=== PATIENT | female | born 1985 | race African-American/Black ===

== ENCOUNTER 2016-07-29 17:07 | Emergency (ER) | payer OTHER ==
[~2016-07-29 17:07] MED LIST: KETO200T PO
[2016-07-29 17:19] VITALS: BP 126/74
[2016-07-29] MEDS ORDERED: KETO200T PO (17:54)
--- NOTE | 2016-07-29 17:55 | PHYS DOC ---
Past Medical History Past Medical History: No Pertinent History Past Surgical History: No Surgical History Additional Information: Nonsmoker Alcohol Use: Occasionally Drug Use: None Adult General Chief Complaint Chief Complaint: SKIN PROBLEM HPI HPI Patient is a 31 year old female who presents with rash on bilateral lower legs for 2 weeks. She reports that the spots are itchy. They have been increasing in size. She had similar rash a few months ago and was told that it was "a cousin of a yeast infection" and treated with a pill. The rash resolved with the treatment. She denies any change in household products or other family members with similar rash. She does not have a PCP. Review of Systems Review of Systems Constitutional: Denies fever or chills. [] Musculoskeletal: Denies back pain or joint pain. [] Integument: Reports rash on lower legs. Neurologic: focal weakness or sensory changes. [] Allergies Allergies Allergies Coded Allergies Type Severity Reaction Last Updated Verified No Known Drug Allergies 03/16/16 No Physical Exam Physical Exam Constitutional: Well developed, well nourished, no acute distress, non-toxic appearance. [] HENT: Normocephalic, atraumatic, oropharynx moist. [] Eyes: PERRLA, EOMI, conjunctiva normal, no discharge. [] Skin: Warm, dry, no erythema. There are 3 lesions on the lower legs that are hyperpigmented, macular, with dry skin. There is no central clearing. They do not yoli. There is no erythema or induration Extremities: No tenderness, ROM intact, no edema. Distal pulses equal bilaterally. [] Neurologic: Alert and oriented X 3, normal motor function, normal sensory function, no focal deficits noted. [] Psychologic: Affect normal, judgement normal, mood normal. [] Current Patient Data Vital Signs Vital Signs Date Time Temp Pulse Resp B/P Pulse Ox O2 Delivery O2 Flow Rate FiO2 07/29/16 17:19 98.8 84 18 96 Room Air 98.8 EKG EKG [] Radiology/Procedures Radiology/Procedures [] Course & Med Decision Making Course & Med Decision Making Pertinent Labs and Imaging studies reviewed. (See chart for details) [] Dragon Disclaimer Dragon Disclaimer This electronic medical record was generated, in whole or in part, using a voice recognition dictation system. Departure Departure Impression: Primary Impression: Tinea corporis Disposition: HOME, SELF-CARE Condition: STABLE Referrals: NEFTALY BARRIENTOS MD Patient Instructions: Body Ringworm Additional Instructions: Your rash appears to be due to a fungal infection. Please complete the prescribed medication as directed. Please follow-up with the documentation specialist listed below if the rash does not improve with treatment or if the rash comes back. Return to the emergency department if you have any new or concerning symptoms. Scripts Ketoconazole 200 Mg Tablet2 Tab PO WEEKLY #4 TAB Prov:EDGAR SHAIKH 07/29/16 EDGAR SHAIKH Jul 29, 2016 17:54
== END 2016-07-29 18:24 | disposition home or self-care (01) ==
LOC: ER 17:07
DX: B35.4 Tinea corporis (principal); R53.1 Weakness
CPT/HCPCS: 99283

== ENCOUNTER 2019-07-21 13:46 | Emergency (ER) | payer MEDICAID, OTHER ==
[~2019-07-21 13:46] MED LIST changes: -KETO200T PO; +KETO200T11 PO
[2019-07-21 14:24] LABS: BILIRUBIN,URINE NEGATIVE (NEG); CLARITY,URINE CLEAR; COLOR,URINE YELLOW; NITRITE,URINE NEGATIVE (NEG); PROTEIN,URINE NEGATIVE (NEG-TRACE)
[2019-07-21 14:27] LABS: U PREG PATIENT POSITIVE (NEG)
[2019-07-21 14:28] LABS: SQUAMOUS EPITHELIAL CELL,UR MOD /LPF
[2019-07-21 14:29] LABS: BACTERIA,URINE FEW /HPF (0-FEW); RBC,URINE 0 /HPF (0-2); WBC,URINE OCC /HPF (0-4)
--- NOTE | 2019-07-21 14:30 | PHYS DOC ---
Past Medical History Past Medical History: No Pertinent History (PANCHO ODONNELL APRN) Past Surgical History: No Surgical History (PANCHO ODONNELL APRN) Alcohol Use: Occasionally Drug Use: None (PANCHO ODONNELL APRN) Adult General Chief Complaint Chief Complaint: ABDOMINAL PAIN HPI HPI Patient is a 34 year old female who presents with nausea, vomiting and abdominal pain since last night. Her last period was June 07, 2019. [id number] Complete ROS were reviewed and found to be within normal limits, except as documented in the HPI (PANCHO ODONNELL APRN) Current Medications Current Medications Current Medications Medications (Trade) Dose Ordered Sig/Clemencia Start Time Stop Time Status Last Admin Dose Admin Ondansetron HCl (Zofran) 4 mg 1X ONCE 07/21/19 14:45 07/21/19 14:51 DC 07/21/19 15:29 4 MG Sodium Chloride 1,000 ml @ 1,000 mls/hr 1X ONCE 07/21/19 14:45 07/21/19 15:44 DC 07/21/19 15:30 1,000 MLS/HR (FUNMI RIZVI MD) Allergies Allergies Allergies Coded Allergies Type Severity Reaction Last Updated Verified No Known Drug Allergies 03/16/16 No (FUNMI RIZVI MD) Physical Exam Physical Exam Constitutional: Well developed, well nourished, no acute distress, non-toxic appearance. [] HENT: Normocephalic, atraumatic, bilateral external ears normal, oropharynx moist, no oral exudates, nose normal. [] Eyes: PERRLA, EOMI, conjunctiva normal, no discharge. [] Neck: Normal range of motion, no tenderness, supple, no stridor. [] Cardiovascular:Heart rate regular rhythm, no murmur [] Lungs & Thorax: Bilateral breath sounds clear to auscultation [] Abdomen: Bowel sounds normal, soft, periumbilical tenderness, no masses, no pulsatile masses. [] Skin: Warm, dry, no erythema, no rash. [] Neurologic: Alert and oriented X 3, normal motor function, normal sensory function, no focal deficits noted. [] Psychologic: Affect normal, judgement normal, mood normal. [] (PANCHO ODONNELL APRN) Current Patient Data Vital Signs Vital Signs Date Time Temp Pulse Resp B/P (MAP) Pulse Ox O2 Delivery O2 Flow Rate FiO2 07/21/19 17:50 90 16 111/62 (78) 99 Room Air 07/21/19 14:22 98.0 98.0 (FUNMI RIZVI MD) Lab Values Laboratory Tests Test 07/21/19 14:00 07/21/19 14:57 Urine Collection Type Unknown Urine Color Yellow Urine Clarity Clear Urine pH 7.0 Urine Specific [place] >=1.030 Urine Protein Negative mg/dL (NEG-TRACE) Urine Glucose (UA) Negative mg/dL (NEG) Urine Ketones (Stick) Negative mg/dL (NEG) Urine Blood Negative (NEG) Urine Nitrite Negative (NEG) Urine Bilirubin Negative (NEG) Urine Urobilinogen Dipstick 1.0 mg/dL (0.2 mg/dL) Urine Leukocyte Esterase Negative (NEG) Urine RBC 0 /HPF (0-2) Urine WBC Occ /HPF (0-4) Urine Squamous Epithelial Cells Mod /LPF Urine Bacteria Few /HPF (0-FEW) Urine Mucus Marked /LPF Urine Test Positive (NEG) White Blood Count 6.2 x10^3/uL (4.0-11.0) Red Blood Count 4.21 x10^6/uL (3.50-5.40) Hemoglobin 12.5 g/dL (12.0-15.5) Hematocrit 37.3 % (36.0-47.0) Mean Corpuscular Volume 89 fL (79-100) Mean Corpuscular Hemoglobin 30 pg (25-35) Mean Corpuscular Hemoglobin Concent 34 g/dL (31-37) Red Cell Distribution Width 13.8 % (11.5-14.5) Platelet Count 268 x10^3/uL (140-400) Neutrophils (%) (Auto) 70 % (31-73) Lymphocytes (%) (Auto) 23 % (24-48) L Monocytes (%) (Auto) 6 % (0-9) Eosinophils (%) (Auto) 1 % (0-3) Basophils (%) (Auto) 1 % (0-3) Neutrophils # (Auto) 4.3 x10^3/uL (1.8-7.7) Lymphocytes # (Auto) 1.4 x10^3/uL (1.0-4.8) Monocytes # (Auto) 0.3 x10^3/uL (0.0-1.1) Eosinophils # (Auto) 0.0 x10^3/uL (0.0-0.7) Basophils # (Auto) 0.0 x10^3/uL (0.0-0.2) Maternal Serum HCG Beta Subunit 00548 mIU/mL (0-5) H Sodium Level 136 mmol/L (136-145) Potassium Level 3.5 mmol/L (3.5-5.1) Chloride Level 100 mmol/L (98-107) Carbon Dioxide Level 27 mmol/L (21-32) Anion Gap 9 (6-14) Blood Urea Nitrogen 8 mg/dL (7-20) Creatinine 0.8 mg/dL (0.6-1.0) Estimated GFR (Cockcroft-Gault) 99.4 BUN/Creatinine Ratio 10 (6-20) Glucose Level 107 mg/dL (70-99) H Calcium Level 8.7 mg/dL (8.5-10.1) Magnesium Level 1.8 mg/dL (1.8-2.4) Total Bilirubin 0.4 mg/dL (0.2-1.0) Aspartate Amino Transferase (AST) 11 U/L (15-37) L Alanine Aminotransferase (ALT) 13 U/L (14-59) L Alkaline Phosphatase 53 U/L (46-116) Total Protein 7.5 g/dL (6.4-8.2) Albumin 3.7 g/dL (3.4-5.0) Albumin/Globulin Ratio 1.0 (1.0-1.7) Laboratory Tests 07/21/19 14:57 Laboratory Tests 07/21/19 14:57 (FUNMI RIZVI MD) Lab Values Laboratory Tests Test 07/21/19 14:00 07/21/19 14:57 Urine Collection Type Unknown Urine Color Yellow Urine Clarity Clear Urine pH 7.0 Urine Specific [place] >=1.030 Urine Protein Negative mg/dL (NEG-TRACE) Urine Glucose (UA) Negative mg/dL (NEG) Urine Ketones (Stick) Negative mg/dL (NEG) Urine Blood Negative (NEG) Urine Nitrite Negative (NEG) Urine Bilirubin Negative (NEG) Urine Urobilinogen Dipstick 1.0 mg/dL (0.2 mg/dL) Urine Leukocyte Esterase Negative (NEG) Urine RBC 0 /HPF (0-2) Urine WBC Occ /HPF (0-4) Urine Squamous Epithelial Cells Mod /LPF Urine Bacteria Few /HPF (0-FEW) Urine Mucus Marked /LPF Urine Test Positive (NEG) White Blood Count 6.2 x10^3/uL (4.0-11.0) Red Blood Count 4.21 x10^6/uL (3.50-5.40) Hemoglobin 12.5 g/dL (12.0-15.5) Hematocrit 37.3 % (36.0-47.0) Mean Corpuscular Volume 89 fL (79-100) Mean Corpuscular Hemoglobin 30 pg (25-35) Mean Corpuscular Hemoglobin Concent 34 g/dL (31-37) Red Cell Distribution Width 13.8 % (11.5-14.5) Platelet Count 268 x10^3/uL (140-400) Neutrophils (%) (Auto) 70 % (31-73) Lymphocytes (%) (Auto) 23 % (24-48) L Monocytes (%) (Auto) 6 % (0-9) Eosinophils (%) (Auto) 1 % (0-3) Basophils (%) (Auto) 1 % (0-3) Neutrophils # (Auto) 4.3 x10^3/uL (1.8-7.7) Lymphocytes # (Auto) 1.4 x10^3/uL (1.0-4.8) Monocytes # (Auto) 0.3 x10^3/uL (0.0-1.1) Eosinophils # (Auto) 0.0 x10^3/uL (0.0-0.7) Basophils # (Auto) 0.0 x10^3/uL (0.0-0.2) Maternal Serum HCG Beta Subunit 26570 mIU/mL (0-5) H Sodium Level 136 mmol/L (136-145) Potassium Level 3.5 mmol/L (3.5-5.1) Chloride Level 100 mmol/L (98-107) Carbon Dioxide Level 27 mmol/L (21-32) Anion Gap 9 (6-14) Blood Urea Nitrogen 8 mg/dL (7-20) Creatinine 0.8 mg/dL (0.6-1.0) Estimated GFR (Cockcroft-Gault) 99.4 BUN/Creatinine Ratio 10 (6-20) Glucose Level 107 mg/dL (70-99) H Calcium Level 8.7 mg/dL (8.5-10.1) Magnesium Level 1.8 mg/dL (1.8-2.4) Total Bilirubin 0.4 mg/dL (0.2-1.0) Aspartate Amino Transferase (AST) 11 U/L (15-37) L Alanine Aminotransferase (ALT) 13 U/L (14-59) L Alkaline Phosphatase 53 U/L (46-116) Total Protein 7.5 g/dL (6.4-8.2) Albumin 3.7 g/dL (3.4-5.0) Albumin/Globulin Ratio 1.0 (1.0-1.7) Laboratory Tests 07/21/19 14:57 Laboratory Tests 07/21/19 14:57 (PANCHO ODONNELL APRN) EKG EKG [] (PANCHO ODONNELL APRN) Radiology/Procedures Radiology/Procedures []Signed PATIENT: JUSTICE BAKER ACCOUNT: [id number] : 1985 LOCATION: ER AGE: 34 SEX: F EXAM STATUS: REG ER ORD. PHYSICIAN: PANCHO ODONNELL APRN REASON: abd pain PROCEDURE: OB < 14 WKS Study: US OB < 14 WKS DATE: 07/21/2019 2:35 PM INDICATION: Abdominal pain. COMPARISON: None. TECHNIQUE: Transabdominal ultrasonography of the pelvis was performed. Color Doppler and duplex were utilized as appropriate. FINDINGS: The uterus measures 8.8 x 4.9 x 6.6 cm. Intrauterine gestational sac containing a pole with a measured crown-rump length of 0.31 cm corresponding to an estimated gestational age of 5 weeks 6 days. heart rate of 127 bpm. A yolk sac is visualized. No perigestational hemorrhage. The right ovary measures 4.3 x 6.0 x 4.2 cm and maintains Doppler flow. Complex right ovarian cyst measuring 3.9 x 3.4 x 3.6 cm. Smaller more simple appearing cyst measuring 2.8 x 1.4 x 2.2 cm. No central vascularity involving either the cystic foci. The left ovary measures 1.9 x 2.8 x 2.3 cm with normal Doppler flow. No free pelvic fluid. IMPRESSION: 1. Single live intrauterine with a crown-rump length corresponding to an estimated gestational age of 5 weeks 6 days. No complicating features. 2. Two adjacent right ovarian cysts the largest of which measures up to 3.9 cm in maximum dimension and the smaller up to 2.8 cm. The larger of the two cysts is complex but without internal Doppler flow and this could represent a hemorrhagic cyst. Recommend attention on routine sonographic follow-up for the patient's . Doppler flow is maintained to both ovaries. Electronically signed by: JASE GUPTA MD (07/21/2019 3:46 PM) [facility] DICTATED and SIGNED BY: JASE GUPTA MD DATE: 07/21/19 1546 (PANCHO ODONNELL APRN) Course & Med Decision Making Course & Med Decision Making Pertinent Labs and Imaging studies reviewed. (See chart for details) Will get UA/Preg. is + Will get labs, Ultrasound and give supportive care. Workup is unremarkable. Will d/c home to follow up with [facility]. (PANCHO ODONNELL APRN) Course & Med Decision Making Staff Physician Addendum: I was working in the ER during the course of this patient's visit. I was av ailable for consultation as needed, but I was not directly involved in the care of this patient. (FUNMI RIZVI MD) Dragon Disclaimer Dragon Disclaimer This electronic medical record was generated, in whole or in part, using a voice recognition dictation system. (PANCHO ODONNELL APRN) Departure Departure Impression: Primary Impression: Additional Impression: Nausea and vomiting in Disposition: HOME, SELF-CARE Condition: STABLE Referrals: NO PCP (PCP) PANCHO OLIVARES MD Patient Instructions: ABCs of Additional Instructions: Thank you for visiting [facility]. We appreciate you trusting us with your care. If any additional problems come up don't hesitate to return to visit us. Please follow up with your primary care provider so they can plan additional care if needed and know about the problem that you had. If symptoms worsen come back to the Emergency Department. Any concerning symptoms that start such as chest pain, shortness of air, weakness or numbness on one side of the body, running high fevers or any other concerning symptoms return to the ER. Please follow up with [facility]. Please fill your medications at any pharmacy and follow the prescription instruc tions. Scripts Prochlorperazine Maleate (COMPAZINE) 25 Mg Supp.rect 25 MG RC PRN Q6HRS PRN for NAUSEA, #20 SUPP.RECT Prov: PANCHO ODONNELL APRN 07/21/19 Ondansetron (ONDANSETRON ODT) 4 Mg Tab.rapdis 1 TAB PO PRN Q6-8HRS PRN for NAUSEA, #16 TAB Prov: PANCHO ODONNELL APRN 07/21/19 Problem Qualifiers Primary Impression: Weeks of gestation: less than 8 weeks Qualified Codes: Z3A.01 - Less than 8 weeks gestation of PANCHO ODONNELL APRN Jul 21, 2019 14:30 FUNMI RIZVI MD Jul 22, 2019 07:53
[2019-07-21] MEDS ORDERED: ONDANSETRON PF 4 MG/2 ML VIAL. IV ONE (14:45)
[2019-07-21] MEDS ORDERED: IV NORMAL SALINE 1000ML BAG 1,000 ML IV ONE (14:45)
[2019-07-21 15:03] LABS: BASO % 1 % (0-3); EOS % 1 % (0-3); HEMATOCRIT 37.3 % (36.0-47.0); HEMOGLOBIN 12.5 g/dL (12.0-15.5); LYMPH # 1.4 x10^3/uL (1.0-4.8); LYMPH % 23 % (24-48); MEAN CORPUSCULAR HEMOGLOBIN 30 pg (25-35); MEAN CORPUSCULAR HGB CONC 34 g/dL (31-37); MEAN CORPUSCULAR VOLUME 89 fL (79-100); MONO # 0.3 x10^3/uL (0.0-1.1); MONO % 6 % (0-9); NEUT # 4.3 x10^3/uL (1.8-7.7); NEUT % 70 % (31-73); PLATELET COUNT 268 x10^3/uL (140-400); RED BLOOD COUNT 4.21 x10^6/uL (3.50-5.40); RED CELL DISTRIBUTION WIDTH 13.8 % (11.5-14.5); WHITE BLOOD COUNT 6.2 x10^3/uL (4.0-11.0)
[2019-07-21 15:16] LABS: CALCIUM 8.7 mg/dL (8.5-10.1); CREATININE 0.8 mg/dL (0.6-1.0); GFR 99.4; POTASSIUM 3.5 mmol/L (3.5-5.1)
[2019-07-21 15:22] LABS: ALBUMIN 3.7 g/dL (3.4-5.0); MAGNESIUM 1.8 mg/dL (1.8-2.4); TOTAL BILIRUBIN 0.4 mg/dL (0.2-1.0); TOTAL PROTEIN 7.5 g/dL (6.4-8.2)
--- NOTE | 2019-07-21 15:49 | RAD ---
Study: US OB < 14 WKS DATE: 07/21/2019 2:35 PM INDICATION: Abdominal pain. COMPARISON: None. TECHNIQUE: Transabdominal ultrasonography of the pelvis was performed. Color Doppler and duplex were utilized as appropriate. FINDINGS: The uterus measures 8.8 x 4.9 x 6.6 cm. Intrauterine gestational sac containing a pole with a measured crown-rump length of 0.31 cm corresponding to an estimated gestational age of 5 weeks 6 days. heart rate of 127 bpm. A yolk sac is visualized. No perigestational hemorrhage. The right ovary measures 4.3 x 6.0 x 4.2 cm and maintains Doppler flow. Complex right ovarian cyst measuring 3.9 x 3.4 x 3.6 cm. Smaller more simple appearing cyst measuring 2.8 x 1.4 x 2.2 cm. No central vascularity involving either the cystic foci. The left ovary measures 1.9 x 2.8 x 2.3 cm with normal Doppler flow. No free pelvic fluid. IMPRESSION: 1. Single live intrauterine with a crown-rump length corresponding to an estimated gestational age of 5 weeks 6 days. No complicating features. 2. Two adjacent right ovarian cysts the largest of which measures up to 3.9 cm in maximum dimension and the smaller up to 2.8 cm. The larger of the two cysts is complex but without internal Doppler flow and this could represent a hemorrhagic cyst. Recommend attention on routine sonographic follow-up for the patient's . Doppler flow is maintained to both ovaries. Electronically signed by: JASE GUPTA MD (07/21/2019 3:46 PM) [facility]
[2019-07-21] MEDS ORDERED: ONDA4TAB12 PO (16:22)
[2019-07-21] MEDS ORDERED: PROC25SU21 RC (16:29)
[2019-07-21 17:50] VITALS: BP 111/62
== END 2019-07-21 18:21 | disposition home or self-care (01) ==
LOC: ER 13:46
DX: O21.9 Vomiting of pregnancy, unspecified (principal); R10.33 Periumbilical pain; Z3A.01 Less than 8 weeks gestation of pregnancy
CPT/HCPCS: 36415; 76801; 80053; 81001; 81025; 83735; 84702; 85025; 86900; 86901; 96361; 96374; 99285; J2405; J7030

== ENCOUNTER 2019-08-01 16:38 | Emergency (ER) | payer MEDICAID ==
[~2019-08-01] VITALS: Ht 170.2 cm; Wt 77.0 kg
[~2019-08-01 16:38] MED LIST changes: +ONDA4TAB12 PO; +PROC25SU21 RC
[2019-08-01] MEDS ORDERED: IV NORMAL SALINE 1000ML BAG 1,000 ML IV SCH (18:18)
[2019-08-01 18:25] LABS: BILIRUBIN,URINE SMALL (NEG); CLARITY,URINE CLEAR; COLOR,URINE AMBER; NITRITE,URINE NEGATIVE (NEG); PH,URINE 5.5; PROTEIN,URINE NEGATIVE (NEG-TRACE)
[2019-08-01] MEDS ORDERED: ONDANSETRON PF 4 MG/2 ML VIAL. IV ONE (18:30)
[2019-08-01 18:35] LABS: AMORPHOUS SEDIMENT,UR PRESENT /HPF; BACTERIA,URINE 0 /HPF (0-FEW); RBC,URINE 0 /HPF (0-2); SQUAMOUS EPITHELIAL CELL,UR MANY /LPF
--- NOTE | 2019-08-01 18:44 | PHYS DOC ---
Past Medical History Past Medical History: No Pertinent History Past Surgical History: No Surgical History Alcohol Use: None Drug Use: None Adult General Chief Complaint Chief Complaint: NAUSEA/VOMITING/DIARRHA HPI HPI Patient is a 34 year old female who presents with complaint of nausea and vomiting for the last couple of weeks since being told that she was . Patient states that she is approximately 7 weeks' gestational age and is . Patient states that she has had vomiting throughout all of her pregnancies. She also complains of some chest discomfort that she describes as sharp and stabbing on the left side of her chest. She states that it is worsened with deep breathing and with movement. She rates that pain at a 5-6 out of 10. Patient states that she has been prescribed promethazine but that has not been helping with the nausea at all.[] Review of Systems Review of Systems Constitutional: Denies fever or chills [] Respiratory: Denies cough or shortness of breath [] Cardiovascular: No additional information not addressed in HPI [] GI: Denies abdominal pain. Complains of nausea and vomiting without diarrhea [] : Denies dysuria or hematuria [] Neurologic: Denies headache, focal weakness or sensory changes [] All other systems were reviewed and found to be within normal limits, except as documented in this note. Current Medications Current Medications Current Medications Medications (Trade) Dose Ordered Sig/[facility] Start Time Stop Time Status Last Admin Dose Admin Ondansetron HCl (Zofran) 4 mg 1X ONCE 08/01/19 19:45 08/01/19 19:46 DC Sodium Chloride 1,000 ml @ 1,000 mls/hr 1X ONCE 08/01/19 19:45 08/01/19 20:44 08/01/19 20:20 1,000 MLS/HR Allergies Allergies Allergies Coded Allergies Type Severity Reaction Last Updated Verified No Known Drug Allergies 03/16/16 No Physical Exam Physical Exam Constitutional: Well developed, well nourished, no acute distress, non-toxic appearance. [] HENT: Normocephalic, atraumatic, bilateral external ears normal, oropharynx moist, no oral exudates, nose normal. [] Eyes: PERRLA, EOMI, conjunctiva normal, no discharge. [] Neck: Normal range of motion, no tenderness, supple, no stridor. [] Cardiovascular: Regular rate and rhythm. There is reproducible tenderness along the left mid to lower sternal margin.[] Lungs & Thorax: Bilateral breath sounds clear to auscultation [] Abdomen: Bowel sounds normal, soft, no tenderness. [] Skin: Warm, dry, no erythema, no rash. [] Extremities: No tenderness, no cyanosis, no clubbing, ROM intact, no edema. [] Neurologic: Alert and oriented X 3, no focal deficits noted. [] Current Patient Data Vital Signs Vital Signs Date Time Temp Pulse Resp B/P (MAP) Pulse Ox O2 Delivery O2 Flow Rate FiO2 08/01/19 18:00 98.8 94 18 129/78 (95) 100 Room Air 98.8 Lab Values Laboratory Tests Test 08/01/19 17:10 08/01/19 17:14 08/01/19 18:45 08/01/19 19:50 Urine Collection Type Unknown Urine Color [place] Urine Clarity Clear Urine pH 5.5 Urine Specific [place] >=1.030 Urine Protein Negative mg/dL (NEG-TRACE) Urine Glucose (UA) Negative mg/dL (NEG) Urine Ketones (Stick) Trace mg/dL (NEG) Urine Blood Negative (NEG) Urine Nitrite Negative (NEG) Urine Bilirubin Small (NEG) Urine Urobilinogen Dipstick 1.0 mg/dL (0.2 mg/dL) Urine Leukocyte Esterase Negative (NEG) Urine RBC 0 /HPF (0-2) Urine WBC 1-4 /HPF (0-4) Urine Squamous Epithelial Cells Many /LPF Urine Amorphous Sediment Present /HPF Urine Bacteria 0 /HPF (0-FEW) Urine Mucus Mod /LPF POC Urine HCG, Qualitative Hcg positive (Negative) Maternal Serum HCG Beta Subunit 554063 mIU/mL (0-5) H Sodium Level 139 mmol/L (136-145) Potassium Level 3.9 mmol/L (3.5-5.1) Chloride Level 103 mmol/L (98-107) Carbon Dioxide Level 24 mmol/L (21-32) Anion Gap 12 (6-14) Blood Urea Nitrogen 8 mg/dL (7-20) Creatinine 0.7 mg/dL (0.6-1.0) Estimated GFR (Cockcroft-Gault) 115.9 BUN/Creatinine Ratio 11 (6-20) Glucose Level 88 mg/dL (70-99) Calcium Level 8.8 mg/dL (8.5-10.1) Total Bilirubin 0.4 mg/dL (0.2-1.0) Aspartate Amino Transferase (AST) 13 U/L (15-37) L Alanine Aminotransferase (ALT) 26 U/L (14-59) Alkaline Phosphatase 54 U/L (46-116) Total Protein 7.2 g/dL (6.4-8.2) Albumin 3.7 g/dL (3.4-5.0) Albumin/Globulin Ratio 1.1 (1.0-1.7) Lipase 50 U/L (73-393) L White Blood Count 6.6 x10^3/uL (4.0-11.0) Red Blood Count 3.65 x10^6/uL (3.50-5.40) Hemoglobin 10.8 g/dL (12.0-15.5) L Hematocrit 32.3 % (36.0-47.0) L Mean Corpuscular Volume 88 fL (79-100) Mean Corpuscular Hemoglobin 30 pg (25-35) Mean Corpuscular Hemoglobin Concent 34 g/dL (31-37) Red Cell Distribution Width 13.6 % (11.5-14.5) Platelet Count 209 x10^3/uL (140-400) Neutrophils (%) (Auto) 67 % (31-73) Lymphocytes (%) (Auto) 26 % (24-48) Monocytes (%) (Auto) 6 % (0-9) Eosinophils (%) (Auto) 0 % (0-3) Basophils (%) (Auto) 1 % (0-3) Neutrophils # (Auto) 4.4 x10^3/uL (1.8-7.7) Lymphocytes # (Auto) 1.7 x10^3/uL (1.0-4.8) Monocytes # (Auto) 0.4 x10^3/uL (0.0-1.1) Eosinophils # (Auto) 0.0 x10^3/uL (0.0-0.7) Basophils # (Auto) 0.1 x10^3/uL (0.0-0.2) Laboratory Tests 08/01/19 19:50 Laboratory Tests 08/01/19 18:45 EKG EKG [] Radiology/Procedures Radiology/Procedures [] Course & Med Decision Making Course & Med Decision Making Pertinent Labs and Imaging studies reviewed. (See chart for details) [] Dragon Disclaimer Dragon Disclaimer This electronic medical record was generated, in whole or in part, using a voice recognition dictation system. Departure Departure Impression: Primary Impression: Nausea and vomiting in Disposition: 01 HOME, SELF-CARE Condition: STABLE Referrals: NO PCP (PCP) Patient Instructions: Diet - Hyperemesis Gravidarum, Hyperemesis Gravidarum Scripts Ondansetron (ONDANSETRON ODT) 4 Mg Tab.rapdis 1 TAB PO PRN Q6-8HRS PRN for NAUSEA, #15 TAB Prov: MARGARET CHAU Jr. DO 08/01/19 MARGARET CHAU Jr. DO Aug 01, 2019 18:44
[2019-08-01 19:01] LABS: CALCIUM 8.8 mg/dL (8.5-10.1); CREATININE 0.7 mg/dL (0.6-1.0); GFR 115.9; POTASSIUM 3.9 mmol/L (3.5-5.1)
[2019-08-01 19:06] LABS: ALBUMIN 3.7 g/dL (3.4-5.0); ALBUMIN/GLOBULIN RATIO 1.1 (1.0-1.7); TOTAL BILIRUBIN 0.4 mg/dL (0.2-1.0); TOTAL PROTEIN 7.2 g/dL (6.4-8.2)
[2019-08-01] MEDS ORDERED: IV NORMAL SALINE 1000ML BAG 1,000 ML IV ONE (19:45)
[2019-08-01] MEDS ORDERED: ONDANSETRON PF 4 MG/2 ML VIAL. IVP ONE (19:45)
[2019-08-01 19:55] VITALS: BP 118/76
[2019-08-01 20:03] LABS: BASO # 0.1 x10^3/uL (0.0-0.2); BASO % 1 % (0-3); EOS % 0 % (0-3); HEMATOCRIT 32.3 % (36.0-47.0); HEMOGLOBIN 10.8 g/dL (12.0-15.5); LYMPH # 1.7 x10^3/uL (1.0-4.8); LYMPH % 26 % (24-48); MEAN CORPUSCULAR HEMOGLOBIN 30 pg (25-35); MEAN CORPUSCULAR HGB CONC 34 g/dL (31-37); MEAN CORPUSCULAR VOLUME 88 fL (79-100); MONO # 0.4 x10^3/uL (0.0-1.1); MONO % 6 % (0-9); NEUT # 4.4 x10^3/uL (1.8-7.7); NEUT % 67 % (31-73); PLATELET COUNT 209 x10^3/uL (140-400); RED BLOOD COUNT 3.65 x10^6/uL (3.50-5.40); RED CELL DISTRIBUTION WIDTH 13.6 % (11.5-14.5); WHITE BLOOD COUNT 6.6 x10^3/uL (4.0-11.0)
[2019-08-01] MEDS ORDERED: ONDA4TAB12 PO (20:39)
--- NOTE | 2019-08-02 16:53 | EKG ---
[facility] [address] [place] [address] Test Date: 2019-08-01 Test Time: 18:46:39 Pat Name: JUSTICE BAKER Department: Room: Gender: F [employer]: : 1985 Requested By: MARGARET CHAU Order Number: [id number] Reading MD: Measurements Intervals Loyal Rate: 78 P: 0 VT: 132 QRS: 22 QRSD: 78 T: 31 QT: 356 QTc: 409 Interpretive Statements SINUS RHYTHM QRS(T) CONTOUR ABNORMALITY CONSIDER ANTEROSEPTAL MYOCARDIAL DAMAGE POSSIBLY ABNORMAL ECG RI6.01 No previous ECG available for comparison
== END 2019-08-01 21:30 | disposition home or self-care (01) ==
LOC: ER 16:38
DX: O21.9 Vomiting of pregnancy, unspecified (principal); R07.89 Other chest pain; Z3A.01 Less than 8 weeks gestation of pregnancy
CPT/HCPCS: 36415; 80053; 81001; 81025; 83690; 84702; 85025; 93005; 96361; 96374; 96376; 99285; J2405; J7030

== ENCOUNTER 2020-07-10 12:14 | Emergency (ER) | payer MEDICAID ==
[~2020-07-10] VITALS: Ht 170.2 cm; Wt 83.0 kg
[2020-07-10 14:37] LABS: BILIRUBIN,URINE NEGATIVE (NEG); CLARITY,URINE CLEAR; COLOR,URINE YELLOW; NITRITE,URINE NEGATIVE (NEG); PH,URINE 6.5 (<5.0-8.0); PROTEIN,URINE NEGATIVE (NEG-TRACE)
[2020-07-10 14:47] LABS: BACTERIA,URINE MODERATE /HPF (0-FEW); RBC,URINE OCC /HPF (0-2)
[2020-07-10 14:50] LABS: HEMATOCRIT 37.1 % (36.0-47.0); HEMOGLOBIN 12.4 g/dL (12.0-15.5); MEAN CORPUSCULAR HEMOGLOBIN 29 pg (25-35); MEAN CORPUSCULAR HGB CONC 33 g/dL (31-37); MEAN CORPUSCULAR VOLUME 88 fL (79-100); RED BLOOD COUNT 4.23 x10^6/uL (3.50-5.40); WHITE BLOOD COUNT 5.8 x10^3/uL (4.0-11.0)
[2020-07-10 14:51] LABS: BASO # 0.1 x10^3/uL (0.0-0.2); BASO % 1 % (0-3); EOS # 0.1 x10^3/uL (0.0-0.7); EOS % 2 % (0-3); LYMPH # 1.3 x10^3/uL (1.0-4.8); LYMPH % 23 % (24-48); MONO # 0.5 x10^3/uL (0.0-1.1); MONO % 8 % (0-9); NEUT # 3.8 x10^3/uL (1.8-7.7); NEUT % 66 % (31-73); PLATELET COUNT 293 x10^3/uL (140-400); RED CELL DISTRIBUTION WIDTH 14.4 % (11.5-14.5)
--- NOTE | 2020-07-10 15:23 | RAD ---
Examination: US OB 14+ WKS History: Reason: vag bleed / Spl. Instructions: / History: Comparison/Correlation: None Findings: Transvaginal OB ultrasound reveals performed. Uterus measures 9.6 cm x 5.2 cm x 5.4 cm the myometrium is normal. Intrauterine gestational sac measu ring 1.1 cm in diameter is 5 6 week 0 day gestation is present. Ultrasound EDC of 03/05/2021. No pole or yolk sac identified. No subchorionic hemorrhage. Right ovary measures 2. 3.4 cm x 3 cm x 2.5 cm. Left ovary measures 2.5 cm x 1.9 cm by 1.8 cm. No adn exal masses. Normal flow on color Doppler imaging is present. Right ovarian cyst measures 2.6. No adn exal mass. Impression: Intrauterine gestational sac with mean diameter corresponding to 6 weeks 0 day. No pole or yolk sac. This may relate to early stage of . Interval follow-up serial beta hCG and follow-up p elvic ultrasound exam should be considered. Electronically signed by: Jarett Vázquez MD (07/10/2020 3:21 PM) [id number]
--- NOTE | 2020-07-10 15:41 | ED.ADGEN ---
Past Medical History Past Medical History: No Pertinent History Past Surgical History: No Surgical History Smoking Status: Never Smoker Alcohol Use: Occasionally Additional Information: PT REPORTS OCCASIONAL ALCOHOL, BUT STATES SHE STOPPED SINCE FINDING OUT SHE IS . Drug Use: None General Adult EDM: Chief Complaint: VAGINAL BLEEDING HPI: HPI: Patient is a 35 year old AA female who presents to the emergency department with complaints of left-sided pelvic pain and vaginal spotting for the last week. Patient reports that she was seen at [facility] a week ago where she was told she was and she was also constipated. Patient reports she was given MiraLAX during that visit. Patient states she remains constipated but is having more frequent bowel movements. She denies any vomiting, diarrhea, cough, fever, shortness of breath, back pain, body aches, fatigue, chest pain, or palpitations. Patient states she has had some nausea with this . She denies any irregular vaginal discharge or vaginal odor prior to the onset of the spotting. Patient is 4, para 2, with 1 previous elective . She states her last menstrual cycle was on May 16, 2020, she does not have established obstetric care. She currently rates her pain a 8 out of 10 on the pain scale, she denies any alleviating factors. Review of Systems: Review of Systems: Complete ROS is negative unless otherwise noted in HPI. Allergies: Allergies: Allergies Coded Allergies Type Severity Reaction Last Updated Verified No Known Drug Allergies 03/16/16 No Physical Exam: PE: See Above Constitutional: Well developed, well nourished, no acute distress, non-toxic appearance. [] HENT: Normocephalic, atraumatic, bilateral external ears normal, nose normal. [] Eyes: PERRLA, EOMI, conjunctiva normal, no discharge. [] Neck: Normal range of motion, no stridor. [] Cardiovascular:Heart rate regular rhythm Lungs & Thorax: Respirations even and unlabored, no retractions, no respiratory distress Abdomen: soft, L suprapubic tenderness, no rebound tenderness, no guarding, no palpable mass Skin: Warm, dry, no erythema, no rash. [] Extremities: No cyanosis, ROM intact, no edema. [] Neurologic: Alert and oriented X 3, no focal deficits noted. [] Psychologic: Affect normal, judgement normal, mood normal. [] Current Patient Data: Labs: Laboratory Tests Test 07/10/20 14:15 07/10/20 14:40 Urine Collection Type Unknown Urine Color Yellow Urine Clarity Clear Urine pH 6.5 (<5.0-8.0) Urine Specific [place] >=1.030 (1.000-1.030) Urine Protein Negative mg/dL (NEG-TRACE) Urine Glucose (UA) Negative mg/dL (NEG) Urine Ketones (Stick) Negative mg/dL (NEG) Urine Blood Negative (NEG) Urine Nitrite Negative (NEG) Urine Bilirubin Negative (NEG) Urine Urobilinogen Dipstick 1.0 mg/dL (0.2 mg/dL) Urine Leukocyte Esterase Small (NEG) Urine RBC Occ /HPF (0-2) Urine WBC 5-10 /HPF (0-4) Urine Squamous Epithelial Cells Many /LPF Urine Bacteria Moderate /HPF (0-FEW) Urine Mucus Marked /LPF White Blood Count 5.8 x10^3/uL (4.0-11.0) Red Blood Count 4.23 x10^6/uL (3.50-5.40) Hemoglobin 12.4 g/dL (12.0-15.5) Hematocrit 37.1 % (36.0-47.0) Mean Corpuscular Volume 88 fL (79-100) Mean Corpuscular Hemoglobin 29 pg (25-35) Mean Corpuscular Hemoglobin Concent 33 g/dL (31-37) Red Cell Distribution Width 14.4 % (11.5-14.5) Platelet Count 293 x10^3/uL (140-400) Neutrophils (%) (Auto) 66 % (31-73) Lymphocytes (%) (Auto) 23 % (24-48) L Monocytes (%) (Auto) 8 % (0-9) Eosinophils (%) (Auto) 2 % (0-3) Basophils (%) (Auto) 1 % (0-3) Neutrophils # (Auto) 3.8 x10^3/uL (1.8-7.7) Lymphocytes # (Auto) 1.3 x10^3/uL (1.0-4.8) Monocytes # (Auto) 0.5 x10^3/uL (0.0-1.1) Eosinophils # (Auto) 0.1 x10^3/uL (0.0-0.7) Basophils # (Auto) 0.1 x10^3/uL (0.0-0.2) Maternal Serum HCG Beta Subunit 39404 mIU/mL (0-5) H Laboratory Tests 07/10/20 14:40 Vital Signs: Vital Signs Date Time Temp Pulse Resp B/P (MAP) Pulse Ox O2 Delivery O2 Flow Rate FiO2 07/10/20 16:26 97 16 132/73 (92) 99 Room Air 07/10/20 14:13 98.7 98.7 EKG: EKG: [] Heart Score: Risk Factors: Risk Factors: DM, Current or recent (<one month) smoker, HTN, HLP, family history of CAD, obesity. Risk Scores: Score 0 - 3: 2.5% MACE over next 6 weeks - Discharge Home Score 4 - 6: 20.3% MACE over next 6 weeks - Admit for Clinical Observation Score 7 - 10: 72.7% MACE over next 6 weeks - Early Invasive Strategies Radiology/Procedures: Radiology/Procedures: PROCEDURE: PREG 1ST TRIMESTER Examination: US OB 14+ WKS History: Reason: vag bleed / Spl. Instructions: / History: Comparison/Correlation: None Findings: Transvaginal OB ultrasound reveals performed. Uterus measures 9.6 cm x 5.2 cm x 5.4 cm the myometrium is normal. Intrauterine gestational sac measuring 1.1 cm in diameter is 5 6 week 0 day gestation is present. Ultrasound EDC of 03/05/2021. No pole or yolk sac identified. No subchorionic hemorrhage. Right ovary measures 2. 3.4 cm x 3 cm x 2.5 cm. Left ovary measures 2.5 cm x 1.9 cm by 1.8 cm. No adnexal masses. Normal flow on color Doppler imaging is present. Right ovarian cyst measures 2.6. No adnexal mass. Impression: Intrauterine gestational sac with mean diameter corresponding to 6 weeks 0 day. No pole or yolk sac. This may relate to early stage of . Interval follow-up serial beta hCG and follow-up pelvic ultrasound exam should be considered. [] Course & Med Decision Making: Course & Med Decision Making Pertinent Labs and Imaging studies reviewed. (See chart for details) 35-year-old female presents emergency department with complaints of vaginal bleeding during . Ultrasound revealed a intrauterine gestational sac without a pole or yolk sac present, [place] [address], patient's blood type is O+ per previous v isit history. UA is concerning for urinary tract infection with 5-10 white blood cells and reports of urinary frequency. Prescription was written for Keflex. Patient was encouraged to be on pelvic re st until follow-up with Dr. Zapien's office this week, she was instructed to call in the morning to schedule a follow up appointment Patient verbalized an understanding of home care, medications, follow-up, and return to ED instructions and was in agreement with the plan of care. [] Dragon Disclaimer: Dragon Disclaimer: This electronic medical record was generated, in whole or in part, using a voice recognition dictation system. Departure Departure Impression: Primary Impression: Threatened miscarriage in early Additional Impression: UTI (urinary tract infection) in in first trimester Disposition: 01 DC HOME SELF CARE/HOMELESS Condition: STABLE Referrals: FABIO ZAPIEN Jr, MD Patient Instructions: - Urinary Tract Infection, Threatened Misc arriage, [id number] Additional Instructions: Fill prescription(s) and use as directed. Avoid bladder irritants such as caffeine, carbonation, and spicy foods. Increase clear fluids. You have been diagnosed with a threatened miscarriage today, it is important you practice p elvic rest as instructed until you follow-up with an SET UP MACHINIST. I have provided 's information for follow-up. Today your ultrasound revealed a intrauterine gestational sac without a visible pole or heart rate that measured approximately 6 weeks. [place] level was [address]. You will need to follow-up with Dr. Zapien's office for a repeat hCG level and a repeat ultrasound. Return to the emergency room if your symptoms worsen or fever develops. Scripts Cephalexin (KEFLEX) 500 Mg Capsule 500 MG PO BID for 7 Days, #14 CAP 0 Refills Prov: LESLIE CENTENO [employer]IAN SCIENCE [employer] 07/10/20 Problem Qualifiers LESLIE CENTENO [employer] SCI[employer] HEALER Jul 10, 2020 15:41
[2020-07-10 16:26] VITALS: BP 132/73
[2020-07-10] MEDS ORDERED: CEPH-264 PO (16:48)
== END 2020-07-10 16:52 | disposition home or self-care (01) ==
LOC: ER 12:14
DX: O20.0 Threatened abortion (principal); O23.41 Unspecified infection of urinary tract in pregnancy, first trimester; R10.2 Pelvic and perineal pain; Z3A.01 Less than 8 weeks gestation of pregnancy
CPT/HCPCS: 36415; 76801; 81001; 84702; 85025; 87086; 99284

== ENCOUNTER → 2020-07-21 | Outpatient (CLI) | payer MEDICAID ==
[2020-07-10 16:26] VITALS: BP 132/73
[~2020-07-21] MED LIST changes: +CEPH-264 PO
[2020-07-21 15:08] LABS: BASO % 1 % (0-3); EOS # 0.1 x10^3/uL (0.0-0.7); EOS % 2 % (0-3); HEMATOCRIT 35.1 % (36.0-47.0); HEMOGLOBIN 11.8 g/dL (12.0-15.5); LYMPH # 1.2 x10^3/uL (1.0-4.8); LYMPH % 24 % (24-48); MEAN CORPUSCULAR HEMOGLOBIN 30 pg (25-35); MEAN CORPUSCULAR HGB CONC 34 g/dL (31-37); MEAN CORPUSCULAR VOLUME 88 fL (79-100); MONO # 0.3 x10^3/uL (0.0-1.1); MONO % 7 % (0-9); NEUT # 3.4 x10^3/uL (1.8-7.7); NEUT % 67 % (31-73); PLATELET COUNT 274 x10^3/uL (140-400); RED BLOOD COUNT 3.99 x10^6/uL (3.50-5.40); RED CELL DISTRIBUTION WIDTH 14.5 % (11.5-14.5); WHITE BLOOD COUNT 5.1 x10^3/uL (4.0-11.0)
== END ==
LOC: LAB 14:40
PROVIDERS: ATTEND Obstetrics & Gynecology
DX: O03.4 Incomplete spontaneous abortion without complication (principal)
CPT/HCPCS: 36415; 84702; 85025

== ENCOUNTER → 2020-11-25 | Outpatient (CLI) | payer MEDICAID ==
--- NOTE | 2020-11-25 12:55 | RAD ---
EXAM: Pelvis sonogram. HISTORY: Uterine fibroid. TECHNIQUE: Transabdominal and transvaginal sonographic imaging the pelvis was performed. COMPARISON: None. FINDINGS: The uterus measures 7.9 x 3.1 x 4.0 cm. The endometrial stripe measures 4 mm thickness. No uterine fibroid is seen. The ovaries are normal in size. There are multiple lateral ovarian follicles . There is a dominant right ovarian follicle measuring 9 mm. There is no pelvic free fluid. IMPRESSION: 1. Multiple prominent eccentric bilateral ovarian follicles measuring up to 9 mm. 2. No evidence of a uterine fibroid. Electronically signed by: Bertha Steve MD (11/25/2020 12:53 PM) [id number]
== END ==
LOC: US 10:39
PROVIDERS: ATTEND Obstetrics & Gynecology
DX: N83.02 Follicular cyst of left ovary (principal); N83.01 Follicular cyst of right ovary
CPT/HCPCS: 76830; 76856

== ENCOUNTER 2021-05-23 19:37 | Emergency (ER) | payer MEDICAID ==
[~2021-05-23] VITALS: Ht 167.6 cm; Wt 90.9 kg
--- NOTE | 2021-05-23 20:16 | ED.ADGEN ---
Past Medical History Past Medical History: No Pertinent History Past Surgical History: No Surgical History Smoking Status: Never Smoker Alcohol Use: Occasionally Drug Use: None General Adult EDM: Chief Complaint: VOMITING IN HPI: HPI: Patient is a 36 year old patient G5, P2 female at approximately 6 weeks gestational age by LMP presenting with numerous episodes of vomiting today. Has a vomiting is nonbloody or bilious. Also with new constipation with not have bowel movement past 2 days. Had some chills but no fever. Patient states that she has had hyperemesis with all of her pregnancies. Took Zofran at home without improvement. Patient is not vaccinated against Covid. Is complaining of some anterior rib pain after vomiting. Denies any lower extremity edema or history of blood clots. Review of Systems: Review of Systems: All other systems within normal limits except for as noted in the HPI Current Medications: Current Medications Medications (Trade) Dose Ordered Sig/Clemencia Start Time Stop Time Status Last Admin Dose Admin Ceftriaxone Sodium (Rocephin) 1 gm 1X ONCE 05/23/21 21:15 05/23/21 21:16 DC Ondansetron HCl (Zofran) 4 mg 1X ONCE 05/23/21 20:30 05/23/21 20:31 DC 05/23/21 20:28 4 MG Ringer's Solution 1,000 ml @ 1,000 mls/hr 1X ONCE 05/23/21 20:30 05/23/21 21:29 DC 05/23/21 20:29 1,000 MLS/HR Allergies: Allergies: Allergies Coded Allergies Type Severity Reaction Last Updated Verified No Known Drug Allergies 03/16/16 No Physical Exam: PE: Constitutional: Well developed, well nourished, no acute distress, non-toxic appearance. [] HENT: Normocephalic, atraumatic, bilateral external ears normal, nose normal. [] Eyes: PERRLA, conjunctiva normal, no discharge. [] Neck: No rigidity, supple, no stridor. [] Cardiovascular: Regular rate and rhythm, brisk cap refill [] Lungs & Thorax: Non labored symmetric respirations, no tachypnea or respiratory distress [] Abdomen: Soft, nondistended. Skin: Warm, dry, no erythema, no rash. [] Back: Unremarkable Extremities: No deformities, range of motion grossly intact, no lower extremity edema [] Neurologic: Alert and oriented X 3, no focal deficits noted. [] Psychologic: Affect normal, judgement normal, mood normal. [] Current Patient Data: Labs: Laboratory Tests Test 05/23/21 19:45 05/23/21 20:00 White Blood Count 11.2 x10^3/uL (4.0-11.0) H Red Blood Count 4.27 x10^6/uL (3.50-5.40) Hemoglobin 11.7 g/dL (12.0-15.5) L Hematocrit 35.6 % (36.0-47.0) L Mean Corpuscular Volume 84 fL (79-100) Mean Corpuscular Hemoglobin 28 pg (25-35) Mean Corpuscular Hemoglobin Concent 33 g/dL (31-37) Red Cell Distribution Width 15.0 % (11.5-14.5) H Platelet Count 316 x10^3/uL (140-400) Neutrophils (%) (Auto) 74 % (31-73) H Lymphocytes (%) (Auto) 20 % (24-48) L Monocytes (%) (Auto) 5 % (0-9) Eosinophils (%) (Auto) 1 % (0-3) Basophils (%) (Auto) 0 % (0-3) Neutrophils # (Auto) 8.4 x10^3/uL (1.8-7.7) H Lymphocytes # (Auto) 2.3 x10^3/uL (1.0-4.8) Monocytes # (Auto) 0.5 x10^3/uL (0.0-1.1) Eosinophils # (Auto) 0.1 x10^3/uL (0.0-0.7) Basophils # (Auto) 0.0 x10^3/uL (0.0-0.2) Sodium Level 136 mmol/L (136-145) Potassium Level 3.9 mmol/L (3.5-5.1) Chloride Level 101 mmol/L (98-107) Carbon Dioxide Level 25 mmol/L (21-32) Anion Gap 10 (6-14) Blood Urea Nitrogen 9 mg/dL (7-20) Creatinine 0.7 mg/dL (0.6-1.0) Estimated GFR (Cockcroft-Gault) 114.6 BUN/Creatinine Ratio 13 (6-20) Glucose Level 93 mg/dL (70-99) Lactic Acid Level 1.2 mmol/L (0.4-2.0) Calcium Level 8.8 mg/dL (8.5-10.1) Phosphorus Level 4.2 mg/dL (2.6-4.7) Magnesium Level 2.2 mg/dL (1.8-2.4) Total Bilirubin 0.1 mg/dL (0.2-1.0) L Aspartate Amino Transferase (AST) 11 U/L (15-37) L Alanine Aminotransferase (ALT) 17 U/L (14-59) Alkaline Phosphatase 102 U/L (46-116) Troponin I High Sensitivity 31 ng/L (4-50) Total Protein 7.4 g/dL (6.4-8.2) Albumin 3.5 g/dL (3.4-5.0) Albumin/Globulin Ratio 0.9 (1.0-1.7) L Lipase 53 U/L (73-393) L Urine Collection Type Unknown Urine Color Yellow Urine Clarity Clear Urine pH 6.5 (<5.0-8.0) Urine Specific [place] 1.025 (1.000-1.030) Urine Protein Negative mg/dL (NEG-TRACE) Urine Glucose (UA) Negative mg/dL (NEG) Urine Ketones (Stick) Negative mg/dL (NEG) Urine Blood Negative (NEG) Urine Nitrite Negative (NEG) Urine Bilirubin Negative (NEG) Urine Urobilinogen Dipstick 1.0 mg/dL (0.2 mg/dL) Urine Leukocyte Esterase Moderate (NEG) Urine RBC Occ /HPF (0-2) Urine WBC 20-40 /HPF (0-4) Urine Squamous Epithelial Cells Many /LPF Urine Bacteria Moderate /HPF (0-FEW) Urine Mucus Mod /LPF Maternal Serum HCG Beta Subunit 71369 mIU/mL (0-5) H Laboratory Tests 05/23/21 19:45 Laboratory Tests 05/23/21 19:45 Vital Signs: Vital Signs Date Time Temp Pulse Resp B/P (MAP) Pulse Ox O2 Delivery O2 Flow Rate FiO2 05/23/21 19:40 98.2 108 20 136/81 (99) 99 Room Air 98.2 EKG: EKG: Sinus tachycardia, heart rate 100 beats minute, normal axis, no ST elevation or depression, normal intervals, 1 PAC [] Heart Score: C/O Chest Pain: No Risk Factors: Risk Factors: DM, Current or recent (<one month) smoker, HTN, HLP, family history of CAD, obesity. Risk Scores: Score 0 - 3: 2.5% MACE over next 6 weeks - Discharge Home Score 4 - 6: 20.3% MACE over next 6 weeks - Admit for Clinical Observation Score 7 - 10: 72.7% MACE over next 6 weeks - Early Invasive Strategies Radiology/Procedures: Radiology/Procedures: [facility] [address] [place] [address] IMAGING REPORT Signed PATIENT: JUSTICE BAKER ACCOUNT: [id number] : 1985 LOCATION: ER AGE: 36 SEX: F EXAM STATUS: PRE ER ORD. PHYSICIAN: MIHAELA SAAVEDRA MD REASON: VOMITING, PAIN PROCEDURE: OB <14 WKS W/TV EXAM: OBSTETRIC ULTRASOUND, <14 WEEKS. HISTORY: Nausea and abdominal pain in . COMPARISON: None. FINDINGS: Sonographic evaluation of the pelvis was performed transabdominally and transvaginally. The uterus is anteverted and measures 9.4 x 5.1 x 5.0 cm. There is a single intrauterine gestation measuring 6 weeks 5 days based on mean sac diameter. No pole is yet detectable. No yolk sac is visualized. The gestational sac is regular. There is no subchorionic collection. The right ovary measures 2.2 x 1.6 x 1.6 cm. The left ovary measures 3.1 x 2.5 x 2.4 cm. There is normal Doppler flow bilaterally. There is no adnexal mass. There is no significant free fluid. IMPRESSION: 1. Single intrauterine gestation. No pole or yolk sac are detectable at mean sac diameter commensurate with 6 weeks 5 days. This is concerning for an anembryonic gestation. Ongoing follow-up is recommended. Electronically signed by: Favian Aguiar MD (05/23/2021 9:28 PM) [id number] DICTATED and SIGNED BY: CINTHYA AGUIAR MD DATE: 05/23/21 [id number] [] Course & Med Decision Making: Course & Med Decision Making Pertinent Labs and Imaging studies reviewed. (See chart for details) [] Dragon Disclaimer: Dragon Disclaimer: This electronic medical record was generated, in whole or in part, using a voice recognition dictation system. Departure Departure Impression: Primary Impression: Nausea and vomiting in Additional Impression: UTI (urinary tract infection) in in first trimester Disposition: HOME / SELF CARE / HOMELESS Condition: STABLE Referrals: NO PCP (PCP) Patient Instructions: Diet - Hyperemesis Gravidarum Additional Instructions: Follow-up with your RESERVATIONS SALES AGENT for repeat ultrasound, your beta hCG level today is 41,356 Scripts Promethazine Hcl (PROMETHAZINE HCL) 25 Mg Tablet 1 TAB PO PRN Q6HRS for nausea and vomiting for 5 Days, #20 TAB Prov: MIHAELA SAAVEDRA MD 05/23/21 Problem Qualifiers MIHAELA SAAVEDRA MD May 23, 2021 20:16
[2021-05-23 20:24] LABS: BASO % 0 % (0-3); EOS # 0.1 x10^3/uL (0.0-0.7); EOS % 1 % (0-3); HEMATOCRIT 35.6 % (36.0-47.0); HEMOGLOBIN 11.7 g/dL (12.0-15.5); LYMPH # 2.3 x10^3/uL (1.0-4.8); LYMPH % 20 % (24-48); MEAN CORPUSCULAR HEMOGLOBIN 28 pg (25-35); MEAN CORPUSCULAR HGB CONC 33 g/dL (31-37); MEAN CORPUSCULAR VOLUME 84 fL (79-100); MONO # 0.5 x10^3/uL (0.0-1.1); MONO % 5 % (0-9); NEUT # 8.4 x10^3/uL (1.8-7.7); NEUT % 74 % (31-73); PLATELET COUNT 316 x10^3/uL (140-400); RED BLOOD COUNT 4.27 x10^6/uL (3.50-5.40); WHITE BLOOD COUNT 11.2 x10^3/uL (4.0-11.0)
[2021-05-23 20:25] LABS: BILIRUBIN,URINE NEGATIVE (NEG); CLARITY,URINE CLEAR; COLOR,URINE YELLOW; NITRITE,URINE NEGATIVE (NEG); PH,URINE 6.5 (<5.0-8.0); PROTEIN,URINE NEGATIVE (NEG-TRACE)
[2021-05-23] MEDS ORDERED: IV RINGERS,LACTATED 500ML 1,000 ML IV ONE (20:30)
[2021-05-23] MEDS ORDERED: ONDANSETRON PF 4 MG/2 ML VIAL. IVP ONE (20:30)
[2021-05-23 20:32] LABS: BACTERIA,URINE MODERATE /HPF (0-FEW); RBC,URINE OCC /HPF (0-2); WBC,URINE 20-40 /HPF (0-4)
[2021-05-23 20:39] LABS: CALCIUM 8.8 mg/dL (8.5-10.1); CREATININE 0.7 mg/dL (0.6-1.0); GFR 114.6; POTASSIUM 3.9 mmol/L (3.5-5.1)
[2021-05-23 20:45] LABS: ALBUMIN 3.5 g/dL (3.4-5.0); ALBUMIN/GLOBULIN RATIO 0.9 (1.0-1.7); MAGNESIUM 2.2 mg/dL (1.8-2.4); PHOSPHORUS 4.2 mg/dL (2.6-4.7); TOTAL BILIRUBIN 0.1 mg/dL (0.2-1.0); TOTAL PROTEIN 7.4 g/dL (6.4-8.2)
[2021-05-23] MEDS ORDERED: cefTRIAXone IV Push 1 GM VIAL. IVP ONE (21:15)
--- NOTE | 2021-05-23 21:30 | RAD ---
EXAM: OBSTETRIC ULTRASOUND, <14 WEEKS. HISTORY: Nausea and abdominal pain in . COMPARISON: None. FINDINGS: Sonographic evaluation of the pelvis was performed transabdominally and transvaginally. The uterus is anteverted and measures 9.4 x 5.1 x 5.0 cm. There is a single intrauterine gestation me asuring 6 weeks 5 days based on mean sac diameter. No pole is yet detectable. No yolk sac is vi sualized. The gestational sac is regular. There is no subchorionic collection. The right ovary measures 2.2 x 1.6 x 1.6 cm. The left ovary measures 3.1 x 2.5 x 2.4 cm. There is nor mal Doppler flow bilaterally. There is no adnexal mass. There is no significant free fluid. IMPRESSION: 1. Single intrauterine gestation. No pole or yolk sac are detectable at mean sac diameter comme nsurate with 6 weeks 5 days. This is concerning for an anembryonic gestation. Ongoing follow-up is re commended. Electronically signed by: Favian Aguiar MD (05/23/2021 9:28 PM) [id number]
[2021-05-23] MEDS ORDERED: PROM25TA10 PO (22:23)
[2021-05-23 23:19] VITALS: BP 111/73
== END 2021-05-23 23:30 | disposition home or self-care (01) ==
LOC: ER 19:37
DX: O23.41 Unspecified infection of urinary tract in pregnancy, first trimester (principal); N39.0 Urinary tract infection, site not specified; R07.81 Pleurodynia; Z3A.01 Less than 8 weeks gestation of pregnancy
CPT/HCPCS: 36415; 76801; 76817; 80053; 81001; 83605; 83690; 83735; 84100; 84484; 84702; 85025; 87086; 96361; 96374; 96375; 99285; J0696; J2405; J7120

== ENCOUNTER 2021-06-17 18:38 | Emergency (ER) | payer MEDICAID ==
[~2021-06-17 18:38] MED LIST changes: +PROM25TA10 PO
== END 2021-06-17 19:51 | disposition left against medical advice (07) ==
LOC: ER 18:38
DX: N93.8 Other specified abnormal uterine and vaginal bleeding (principal); Z53.21 Procedure and treatment not carried out due to patient leaving prior to being seen by health care provider

== ENCOUNTER 2021-10-26 18:28 | Emergency (ER) | payer MEDICAID ==
[~2021-10-26] VITALS: Ht 167.6 cm; Wt 84.0 kg
[2021-10-26] MEDS ORDERED: IV NORMAL SALINE 1000ML BAG 1,000 ML IV ONE (19:00)
[2021-10-26] MEDS ORDERED: ONDANSETRON PF 4 MG/2 ML VIAL. IVP ONE (19:00)
[2021-10-26 19:34] LABS: BACTERIA,URINE 0 /HPF (0-FEW)
[2021-10-26 19:46] LABS: BASO # 0.1 x10^3/uL (0.0-0.2); BASO % 1 % (0-3); EOS # 0.1 x10^3/uL (0.0-0.7); EOS % 1 % (0-3); HEMATOCRIT 35.8 % (36.0-47.0); LYMPH # 1.9 x10^3/uL (1.0-4.8); LYMPH % 19 % (24-48); MEAN CORPUSCULAR HEMOGLOBIN 27 pg (25-35); MEAN CORPUSCULAR HGB CONC 34 g/dL (31-37); MEAN CORPUSCULAR VOLUME 82 fL (79-100); MONO # 0.5 x10^3/uL (0.0-1.1); MONO % 5 % (0-9); NEUT # 7.7 x10^3/uL (1.8-7.7); NEUT % 75 % (31-73); PLATELET COUNT 330 x10^3/uL (140-400); RED BLOOD COUNT 4.39 x10^6/uL (3.50-5.40); RED CELL DISTRIBUTION WIDTH 16.4 % (11.5-14.5); WHITE BLOOD COUNT 10.3 x10^3/uL (4.0-11.0)
--- NOTE | 2021-10-26 20:18 | RAD ---
US OB <14 WKS +TV History: Reason: n/v, hx of ovarian torsion / Spl. Instructions: / History: Comparison: None. Technique: Grayscale and color Doppler imaging of the pelvis was performed using transvaginal NEMOPTIC ue. Findings: The uterus measures 8.2 x 7.0 x 4.0 cm. Single intrauterine gestational sac with regular appearance. Yolk sac is identified. pole is id entified with crown-rump length 2.6 cm. Estimated gestational age by ultrasound 9 weeks 3 days. heart rate 178 beats per minutes. No perigestational fluid collection. Estimated date of delivery by ultrasound May 28, 2022 Right ovary measures 4.0 x 2.1 x 2.1 cm. Involuting right ovarian follicle measures 1.5 cm. Left ovary measures 2.4 x 1.3 x 1.8 cm. Normal Doppler flow to the ovaries bilaterally. No adnexal masses are seen. IMPRESSION: 1. Single intrauterine with gestational age 9 weeks 3 days and heart rate 178 bpm. R ecommend routine anatomic screening at 18-22 weeks. Electronically signed by: Kemar Thompson DO (10/26/2021 8:16 PM) [facility]
--- NOTE | 2021-10-26 20:29 | PHYS DOC ---
Past Medical History Past Medical History: No Pertinent History Past Surgical History: No Surgical History Smoking Status: Never Smoker Alcohol Use: Occasionally Drug Use: None General Adult EDM: Chief Complaint: VOMITING IN HPI: HPI: Patient is a 36-year-old female that presents today with nausea vomiting and dehydration. Patient states that she is approximately 9 weeks , and she comes to the emergency department today because she has had nausea vomiting and unable to keep any by mouth fluids down, she called her ATTRACTION WORKER and her NOCTURNIST PHYSICIAN recommended that she come to the emergency department for IV fluids. Patient denies abdominal pain, but does states that she was at [facility] approximately 2 to 3 weeks ago for an ovarian torsion for which she had surgery for, and she recently saw her ATTRACTION WORKER on Saturday and states that her visit was within normal limits. She states that she at home has Zofran and promethazine for her nausea and she said they are not helping. Review of Systems: Review of Systems: Constitutional: Denies fever or chills. [] Eyes: Denies change in visual acuity. [] HENT: Denies nasal congestion or sore throat. [] Respiratory: Denies cough or shortness of breath. [] Cardiovascular: Denies chest pain or edema. [] GI: nausea, vomiting, denies abdominal pain, bloody stools or diarrhea. [] : Denies dysuria. [] Musculoskeletal: Denies back pain or joint pain. [] Integument: Denies rash. [] Neurologic: Denies headache, focal weakness or sensory changes. [] Endocrine: Denies polyuria or polydipsia. [] Lymphatic: Denies swollen glands. [] Psychiatric: Denies depression or anxiety. [] Heart Score: C/O Chest Pain: No Risk Factors: Risk Factors: DM, Current or recent (<one month) smoker, HTN, HLP, family history of CAD, obesity. Risk Scores: Score 0 - 3: 2.5% MACE over next 6 weeks - Discharge Home Score 4 - 6: 20.3% MACE over next 6 weeks - Admit for Clinical Observation Score 7 - 10: 72.7% MACE over next 6 weeks - Early Invasive Strategies Current Medications: Current Medications Medications (Trade) Dose Ordered Sig/Clemencia Start Time Stop Time Status Last Admin Dose Admin Ondansetron HCl (Zofran) 4 mg 1X ONCE 10/26/21 19:00 4/21/22 19:01 DC Sodium Chloride 1,000 ml @ 999 mls/hr 1X ONCE 10/26/21 19:00 10/26/21 20:00 DC Allergies: Allergies: Allergies Coded Allergies Type Severity Reaction Last Updated Verified No Known Drug Allergies 03/16/16 No Physical Exam: PE: Constitutional: Well developed, well nourished, mild distress, non-toxic appearance. [] HENT: Normocephalic, atraumatic, bilateral external ears normal, oropharynx moist, no oral exudates, nose normal. [] Eyes: PERRLA, EOMI, conjunctiva normal, no discharge. [] Neck: Normal range of motion, no tenderness, supple, no stridor. [] Cardiovascular:Heart rate regular rhythm, no murmur [] Lungs & Thorax: Bilateral breath sounds clear to auscultation [] Abdomen: Bowel sounds normal, soft, no tenderness, no masses, no pulsatile masses. [] Skin: Warm, dry, no erythema, no rash. [] Back: No tenderness, no CVA tenderness. [] Extremities: No tenderness, no cyanosis, no clubbing, ROM intact, no edema. [] Neurologic: Alert and oriented X 3, normal motor function, normal sensory function, no focal deficits noted. [] Psychologic: Affect normal, judgement normal, mood normal. [] Current Patient Data: Labs: Laboratory Tests Test 10/26/21 18:50 10/26/21 19:07 10/26/21 19:30 Urine Collection Type Unknown Urine Color (Auto) Yellow Urine Turbidity Hazy Urine pH (Auto) 7.5 (<5.0-8.0) Urine Specific [place] 1.026 (1.000-1.030) Urine Protein (Auto) 30 mg/dL (Negative) Urine Glucose (Auto)(UA) Negative mg/dL (Negative) Urine Ketones (Auto) 10 mg/dL (Negative) Urine Blood (Auto) Negative (Negative) Urine Nitrite Negative (Negative) Urine Bilirubin (Auto) Negative (Negative) Urine Urobilinogen (Auto) 2 mg/dL (Normal) Urine Leukocyte Esterase (Auto) Negative (Negative) Urine RBC 1-2 /HPF (0-2) Urine WBC 1-4 /HPF (0-4) Urine Bacteria 0 /HPF (0-FEW) POC Urine HCG, Qualitative Hcg positive (Negative) White Blood Count 10.3 x10^3/uL (4.0-11.0) Red Blood Count 4.39 x10^6/uL (3.50-5.40) Hemoglobin 12.0 g/dL (12.0-15.5) Hematocrit 35.8 % (36.0-47.0) L Mean Corpuscular Volume 82 fL (79-100) Mean Corpuscular Hemoglobin 27 pg (25-35) Mean Corpuscular Hemoglobin Concent 34 g/dL (31-37) Red Cell Distribution Width 16.4 % (11.5-14.5) H Platelet Count 330 x10^3/uL (140-400) Neutrophils (%) (Auto) 75 % (31-73) H Lymphocytes (%) (Auto) 19 % (24-48) L Monocytes (%) (Auto) 5 % (0-9) Eosinophils (%) (Auto) 1 % (0-3) Basophils (%) (Auto) 1 % (0-3) Neutrophils # (Auto) 7.7 x10^3/uL (1.8-7.7) Lymphocytes # (Auto) 1.9 x10^3/uL (1.0-4.8) Monocytes # (Auto) 0.5 x10^3/uL (0.0-1.1) Eosinophils # (Auto) 0.1 x10^3/uL (0.0-0.7) Basophils # (Auto) 0.1 x10^3/uL (0.0-0.2) Laboratory Tests 10/26/21 19:30 Vital Signs: Vital Signs Date Time Temp Pulse Resp B/P (MAP) Pulse Ox O2 Delivery O2 Flow Rate FiO2 10/26/21 18:48 98.1 99 16 124/76 (92) 98 Room Air 98.1 EKG: EKG: [] Radiology/Procedures: Radiology/Procedures: REASON: n/v, hx of ovarian torsion PROCEDURE: OB < 14 WKS US OB <14 WKS +TV History: Reason: n/v, hx of ovarian torsion / Spl. Instructions: / History: Comparison: None. Technique: Grayscale and color Doppler imaging of the pelvis was performed using transvaginal technique. Findings: The uterus measures 8.2 x 7.0 x 4.0 cm. Single intrauterine gestational sac with regular appearance. Yolk sac is identified. pole is identified with crown-rump length 2.6 cm. Estimated gestational age by ultrasound 9 weeks 3 days. heart rate 178 beats per minutes. No perigestational fluid collection. Estimated date of delivery by ultrasound May 28, 2022 Right ovary measures 4.0 x 2.1 x 2.1 cm. Involuting right ovarian follicle measures 1.5 cm. Left ovary measures 2.4 x 1.3 x 1.8 cm. Normal Doppler flow to the ovaries bilaterally. No adnexal masses are seen. IMPRESSION: 1. Single intrauterine with gestational age 9 weeks 3 days and heart rate 178 bpm. Recommend routine anatomic screening at 18-22 weeks. Electronically signed by: Kemar Olivares DO (10/26/2021 8:16 PM) [facility] [] Course & Med Decision Making: Course & Med Decision Making Pertinent Labs and Imaging studies reviewed. (See chart for details) 2049 patient is requesting to leave AMA, patient states she feels better after the liter of fluid that she has received, she does not want a wait for any more lab test to come back she is feeling better and she just wants to go home. Did inform patient that I am still continue to wait for her electrolytes just due to her increased vomiting I wanted to make sure her sodium and potassium were within normal limits, patient states she does not want a wait for these, I did give her the risk of leaving before the completed assessment was worsening of symptoms, disability to herself or to her unborn child, or of her unborn child. Patient verbalized understanding of this and still continues to wish to go home. [place] Disclaimer: Dragon Disclaimer: This electronic medical record was generated, in whole or in part, using a voice recognition dictation system. Departure Departure Impression: Primary Impression: Nausea and vomiting in Disposition: LEFT AGAINST MEDICAL ADVICE Condition: STABLE Referrals: NO PCP (PCP) PANCHO OLIVARES MD Patient Instructions: Nausea and Vomiting Additional Instructions: Continue to take your prescribed Zofran and promethazine for your nausea as directed by her primary care physician Clear liquid diet until your nausea is under control avoid caffeine Return to the emergency department for increased abdominal pain, inability to keep any by mouth fluids down even with Zofran or promethazine or development of a fever. MILLICENT JAMES BIOCHEMISTRY SPECIALIST Oct 26, 2021 20:29
[2021-10-26 20:55] VITALS: BP 114/67
== END 2021-10-26 21:00 | disposition left against medical advice (07) ==
LOC: ER 18:28
DX: O21.9 Vomiting of pregnancy, unspecified (principal); Z3A.09 9 weeks gestation of pregnancy
CPT/HCPCS: 36415; 76801; 81001; 81025; 85025; 96374; 99284; J2405